=== PATIENT | female | born 1995 ===

== ENCOUNTER 2016-10-27 10:36 | Emergency (ER) | payer MEDICAID, OTHER ==
[2016-10-27 10:36] VITALS: BMI 29.5
--- NOTE | 2016-10-27 11:07 | ED PDOC ---
Arrival/HPI - General Time Seen by Provider: 10/27/16 10:41 Historian: Patient - History of Present Illness Narrative History of Present Illness (Text): 10/27/16 11:00 A 21 year old female patient, A2, presents to the emergency department with 2 day duration left pelvic pain. The patient states that she took a test 4 weeks ago, and it resulted positive. She notes that she did not follow up with NITROGLYCERIN SEPARATOR OPERATOR because she wants an . The patient also notes vaginal bleeding which began last night. She denies any complaint of nausea, vomiting, diarrhea, dysuria, fever, chills, vaginal discharge, shortness of breath, chest pain, headache, dizziness, or any other complaint. Time/Duration: Other (Past 2 days) Symptom Onset: Sudden Symptom Course: Unchanged Activities at Onset: Rest, Light Context: Home Past Medical History - Provider Review Nursing Documentation Reviewed: Yes - Infectious Disease Hx of Infectious Diseases: None - Psychiatric Hx Substance Use: No - Surgical History Other/Comment: x 2 - Anesthesia Hx Anesthesia: Yes Hx Anesthesia Reactions: No Hx Malignant Hyperthermia: No Family/Social History - Physician Review Nursing Documentation Reviewed: Yes Family/Social History: No Known Family HX Smoking Status: Former Smoker Hx Alcohol Use: No Hx Substance Use: No Allergies/Home Meds Allergies/Adverse Reactions: Allergies latex Allergy (Verified 09/02/15 19:29) irritation Home Medications: Home Meds Medication Instructions Recorded Confirmed Vit Calc,Iron,Folic 1 tab PO DAILY 04/22/16 10/27/16 [ Vitamins] Review of Systems - Physician Review All systems were reviewed & negative as marked: Yes - Review of Systems Constitutional: absent: Fevers, Night Sweats Respiratory: absent: SOB Cardiovascular: absent: Chest Pain Gastrointestinal: Abdominal Pain (Left pelvic pain). absent: Diarrhea, Nausea, Vomiting Genitourinary Female: absent: Dysuria Neurological: absent: Headache, Dizziness Physical Exam Vital Signs Reviewed: Yes Vital Signs Temp Pulse Resp BP Pulse Ox 10/27/16 15:04 62 16 110/65 100 10/27/16 12:36 80 18 103/66 99 10/27/16 10:36 98.1 F 77 18 102/63 100 Temperature: Afebrile Blood Pressure: Normal Pulse: Regular Respiratory Rate: Normal Appearance: Positive for: Well-Appearing, Non-Toxic, Comfortable Pain Distress: None Mental Status: Positive for: Alert and Oriented X 3 - Systems Exam Head: Present: Atraumatic, Normocephalic Pupils: Present: PERRL Extroacular Muscles: Present: EOMI Conjunctiva: Present: Normal Mouth: Present: Moist Mucous Membranes Neck: Present: Normal Range of Motion Respiratory/Chest: Present: Clear to Auscultation, Good Air Exchange. No: Respiratory Distress, Accessory Muscle Use Cardiovascular: Present: Regular Rate and Rhythm, Normal S1, S2. 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 No: Vaginal Discharge, Vaginal Bleeding, Vaginal Lesions, Adenexal Tenderness, Cervical Motion Tendernes Back: Present: Normal Inspection Upper Extremity: Present: Normal Inspection. No: Cyanosis, Edema Lower Extremity: Present: Normal Inspection. No: Edema Neurological: Present: GCS=15, CN II-XII Intact, Speech Normal Skin: Present: Warm, Dry, Normal Color. No: Rashes Psychiatric: Present: Alert, Oriented x 3, Normal Insight, Normal Concentration Medical Decision Making ED Course and Treatment: 10/27/16 11:11 Impression: A 21 year old female, , with 2 day duration left pelvic pain and vaginal bleeding since last night. Differential Diagnosis included but are not limited to: Ectopic vs.Ovarian Torsion vs. UTI vs Miscarriage Plan: -- Ultrasound Transvaginal -- Urine Culture -- Urinalysis -- Labs -- Reassess and disposition Prior Visits: Notes and results from previous visits were reviewed. Progress Notes: 10/27/16 14:26 Re-evaluation. Patient feels better. Discussed results and plan with patient who expresses understanding. Counseling was provided regarding the diagnosis and prognosis. All questions answered and there is agreement with the plan to discharge home with instructions. Patient stable for discharge. Return if symptoms persist or worsen. Patient was recommended to f/u NITROGLYCERIN SEPARATOR OPERATOR in 1-2 days. To return to ED if symptoms worsen. To have pelvic ultrasound, and Beta Quant. blood test repeated in 7-10 days Re-evaluation Time: 14:26 Reassessment Condition: Re-examined, Improved - Lab Interpretations Lab Results: 10/27/16 11:30 10/27/16 11:30 Lab Results 10/27/16 11:50: Urine Color Yellow, Urine Appearance Clear, Urine pH 7.0, Ur Specific [place] 1.025, Urine Protein Trace H, Urine Glucose (UA) Negative, Urine Ketones Negative, Urine Blood Moderate H, Urine Nitrate Negative, Urine Bilirubin Negative, Urine Urobilinogen 0.2, Ur Leukocyte Esterase Negative, Urine RBC 2 - 5, Urine WBC 0 - 2, Ur Epithelial Cells 0 - 2, Urine Bacteria Few , Urine HCG, Qual Positive 10/27/16 11:30: Beta HCG, Quant 1251.40 H 10/27/16 11:30: Sodium 139, Potassium 3.8, Chloride 103, Carbon Dioxide 26, Anion Gap 14, BUN 11, Creatinine 0.5, Est GFR ( Amer) > 60, Est GFR (Non- Af Amer) > 60, Random Glucose 83, Calcium 8.6, Total Bilirubin 0.5, AST 24, ALT 30, Alkaline Phosphatase 79, Total Protein 7.9, Albumin 4.2, Globulin 3.7, Albumin/Globulin Ratio 1.1 10/27/16 11:30: PT 11.2, INR 1.04, APTT 31.9 H 10/27/16 11:30: WBC 6.0 D, RBC 4.41, Hgb 12.5, Hct 37.7, MCV 85.5, MCH 28.3, MCHC 33.2, RDW 14.8 H, Plt Count 144, MPV 9.0, Gran % 51.6, Lymph % (Auto) 38.1 H, [place] % (Auto) 9.3 H, Eos % (Auto) 0.8 L, Baso % (Auto) 0.2, Gran # 3.12, Lymph # 2.3, [place] # 0.6, Eos # 0.1, Baso # 0.01 I have reviewed the lab results: Yes - RAD Interpretation Narrative RAD Interpretations (Text): 10/27/16 13:34 Accession No. : [id number] Patient Name / ID : BHAVYA JANE / [id number] Exam Date : 10/27/2016 11:59:44 ( Approved ) Study Comment : Sex / Age : F / 21Y Creator : Daphne Gutiérrez V. Dictator : Daphne Gutiérrez V. Physical Meteorologist : [place] Maker : Daphne Gutiérrez V. Approver2 : Report Date : 10/27/2016 12:47:44 My Comment : HISTORY: left pelvic pain r/o ectopic preg. LMP 09/11/2016 patient has been bleeding since yesterday. Estimated date by LMP is weeks 4 days. COMPARISON: None available. TECHNIQUE: Transvaginal FINDINGS: UTERUS: Measures 8.0 x 3.9 x 4.9 cm. Normal in size, and anteverted appearance. No fibroid or other mass lesion seen. ENDOMETRIUM: Measures 1.3 mm in diameter. The endometrium has a slightly thickened appearance to it - this is still within normal limits. No entry uterine fluid contents are noted. Specifically no intrauterine gestational sac is noted. No intrauterine embryonic pole noted CERVIX: No cervical abnormality identified. Cervix measures 3.1 RIGHT OVARY: Measures 3.0 x 1.8 x 3.7 cm. No solid mass. Normal flow. LEFT OVARY: Measures 3.3 x 1.2 x 2.7 cm. No solid mass. Normal flow. FREE FLUID: No significant free fluid noted. OTHER FINDINGS: None. IMPRESSION: No intrauterine gestation appreciated. . No gross ectopic noted - - the latter is not excluded The endometrium is slightly thickened ; this is a nonspecific. Correlation with serial beta HCG levels and/or follow-up transvaginal ultrasound imaging in 7 to 10 days is recommended . Considerations are: Incorrect dates - an intrauterine gestation less than 5-6 weeks. . A failed early gestation. And a missed . An early ectopic is not excluded. Continued follow-up is advised Radiology Orders: 10/27/16 11:14 OB TRANSVAGINAL [US] Stat - Scribe Statement The provider has reviewed the documentation as recorded by the Bladimiribe Chiara Garcia Provider Scribe Attestation: All medical record entries made by the Scribe were at my direction and personally dictated by me. I have reviewed the chart and agree that the record accurately reflects my personal performance of the history, physical exam, medical decision making, and the department course for this patient. I have also personally directed, reviewed, and agree with the discharge instructions and disposition. Disposition/Present on Arrival - Present on Arrival Any Indicators Present on Arrival: No History of DVT/PE: No History of Uncontrolled Diabetes: No Urinary Catheter: No History Surgical Site Infection Following: None - Disposition Have Diagnosis and Disposition been Completed?: Yes Diagnosis: Vaginal bleeding in patient at less than 20 weeks gestation, Pelvic pain affecting Disposition: HOME/ ROUTINE Disposition Time: 14:29 Patient Plan: Discharge Condition: GOOD Discharge Instructions (ExitCare): (ED), Pelvic Pain in Women (ED) Additional Instructions: Call private NITROGLYCERIN SEPARATOR OPERATOR doctor for follow up visit in 1-2 days. Take medication as instructed. Return to emergency if symptoms worsen. You need to have a repeat ultrasound, and Beta Quant. blood test in 7-10 days. Prescriptions: Cephalexin [Keflex] 500 mg PO BID #10 capsule Vit No.78/Iron/FA [Prenatabs FA Tablet] 1 each PO DAILY #30 tablet Referrals: [facility] [Outside] - [facility] [Outside] - Follow up with primary Carlton Levine [Primary Care Provider] - Follow up with primary Forms: WORK NOTE
[2016-10-27 11:15] VITALS: TEMP 98.1
[2016-10-27 11:43] LABS: BASO # 0.01 K/mm3 (0.0-2.0); BASO % 0.2 % (0.0-3.0); EOS # 0.1 (0.0-0.7); EOS % 0.8 % (1.5-5.0); GRAN # 3.12 (1.4-6.5); GRAN % 51.6 % (50.0-68.0); HEMOGLOBIN 12.5 g/dL (12.0-16.0); LYMPH # 2.3 (1.2-3.4); LYMPH % 38.1 % (22.0-35.0); MEAN CELL VOLUME 85.5 fl (80.0-105.0); MEAN CORPUSCULAR HEMOGLOBIN 28.3 pg (25.0-35.0); MEAN CORPUSCULAR HGB CONC 33.2 g/dl (31.0-37.0); MONO # 0.6 (0.1-0.6); MONO % 9.3 % (1.0-6.0); PLATELET COUNT 144 10^3/uL (120.0-450.0); RBC 4.41 10^6/uL (3.5-6.1); RED CELL DISTRIBUTION WIDTH 14.8 % (11.5-14.5)
[2016-10-27 11:52] LABS: INR 1.04 (0.93-1.08); PARTIAL THROMBOPLASTIN TIME 31.9 Seconds (23.7-30.8); PROTHROMBIN TIME 11.2 Seconds (9.9-11.8)
[2016-10-27 11:54] LABS: ALB/GLOB RATIO 1.1 (1.1-1.8); ALBUMIN 4.2 g/dL (3.0-4.8); ALT/SGPT 30 U/L (7-56); AST/SGOT 24 U/L (15-39); BLOOD UREA NITROGEN 11 mg/dL (7-21); CALCIUM 8.6 mg/dL (8.4-10.5); GFR AFRICAN-AMERICAN > 60; GFR NON-AFRICAN AMERICAN > 60
[2016-10-27 11:59] LABS: URINE BILIRUBIN NEGATIVE (NEGATIVE); URINE BLOOD MODERATE (NEGATIVE); URINE GLUCOSE (UA) NEGATIVE (NEGATIVE); URINE LEUKOCYTE ESTERASE NEGATIVE Leu/uL (NEGATIVE); URINE NITRATE NEGATIVE (NEGATIVE); URINE PROTEIN TRACE mg/dL (<30 mg/dL); URINE UROBILINOGEN 0.2 E.U./dL (<1 E.U./dL)
[2016-10-27 12:01] LABS: HCG,QUALITATIVE URINE POSITIVE (NEGATIVE); URINE COLOR YELLOW (YELLOW)
[2016-10-27 12:21] LABS: URINE APPEARANCE CLEAR (CLEAR)
[2016-10-27 12:22] LABS: URINE BACTERIA FEW (NEG); URINE EPITHELIAL CELLS 0 - 2 /hpf (0-5); URINE WBC 0 - 2 /hpf (0-6)
--- NOTE | 2016-10-27 12:49 | US ---
HISTORY: left pelvic pain r/o ectopic preg. LMP 09/11/2016 patient has been bleeding since yesterday. Estimated date by LMP is weeks 4 days. COMPARISON: None available. TECHNIQUE: Transvaginal FINDINGS: UTERUS: Measures 8.0 x 3.9 x 4.9 cm. Normal in size, and anteverted appearance. No fibroid or other mass lesion seen. ENDOMETRIUM: Measures 1.3 mm in diameter. The endometrium has a slightly thickened appearance to it - this is still within normal limits. No entry uterine fluid contents are noted. Specifically no intrauterine gestational sac is noted. No intrauterine embryonic pole noted CERVIX: No cervical abnormality identified. Cervix measures 3.1 RIGHT OVARY: Measures 3.0 x 1.8 x 3.7 cm. No solid mass. Normal flow. LEFT OVARY: Measures 3.3 x 1.2 x 2.7 cm. No solid mass. Normal flow. FREE FLUID: No significant free fluid noted. OTHER FINDINGS: None. IMPRESSION: No intrauterine gestation appreciated. . No gross ectopic noted - -the latter is not excluded The endometrium is slightly thickened ; this is a nonspecific. Correlation with serial beta HCG levels and/or follow-up transvaginal ultrasound imaging in 7 to 10 days is recommended . Considerations are: Incorrect dates - an intrauterine gestation less than 5-6 weeks. . A failed early gestation. And a missed . An early ectopic is not excluded. Continued follow-up is advised
[2016-10-27 15:05] VITALS: BP 110/65; PULSE 62; RESP 16; O2SAT 100
== END 2016-10-27 15:04 | disposition home or self-care (01) ==
LOC: ED 10:36
DX: O46.91 Antepartum hemorrhage, unspecified, first trimester (principal); O26.891 Other specified pregnancy related conditions, first trimester; R10.2 Pelvic and perineal pain

== ENCOUNTER 2017-04-27 20:51 | Emergency (ER) | payer MEDICAID, OTHER ==
[2017-04-27 20:52] VITALS: BMI 29.5
[2017-04-27 21:22] VITALS: BP 114/74; PULSE 75; RESP 18; TEMP 100.2; O2SAT 99
--- NOTE | 2017-04-27 21:28 | ED PDOC ---
Arrival/HPI - General Chief Complaint: Flu-like Symptoms Time Seen by Provider: 04/27/17 21:27 Historian: Patient - History of Present Illness Narrative History of Present Illness (Text): 04/27/17 21:28 21 y/o female, no significant pmh, nkda, c/o Past Medical History - Infectious Disease Hx of Infectious Diseases: None - Genitourinary/Gynecological Other/Comment: placenta previa. miscarriage - Psychiatric Hx Substance Use: No - Surgical History Other/Comment: x 2 - Anesthesia Hx Anesthesia: Yes Hx Anesthesia Reactions: No Hx Malignant Hyperthermia: No Family/Social History Smoking Status: Former Smoker Hx Alcohol Use: No Hx Substance Use: No Allergies/Home Meds Allergies/Adverse Reactions: Allergies latex Allergy (Verified 09/02/15 19:29) irritation Home Medications: Home Meds Medication Instructions Recorded Confirmed No Known Home Med 03/03/17 03/03/17 Physical Exam Vital Signs Temp Pulse Resp BP Pulse Ox 04/27/17 21:19 100.2 F H 75 18 114/74 99 Disposition/Present on Arrival - Present on Arrival History of DVT/PE: No History of Uncontrolled Diabetes: No Urinary Catheter: No History of Decub. Ulcer: No History Surgical Site Infection Following: None - Disposition
== END 2017-04-27 22:31 | disposition left against medical advice (07) ==
LOC: ED 20:51
DX: Z02.89 Encounter for other administrative examinations (principal); R05 Cough